=== PATIENT | male | born 1955 | race Two or more races ===

== ENCOUNTER 2023-04-08 19:30 | Inpatient (IN) | payer MEDICARE, MEDICAID ==
[~2023-04-08] VITALS: Ht 172.7 cm; Wt 91.5 kg
[2023-04-08] MEDS ORDERED: LACTATED RINGER'S 1,000 ML IV ONE (19:45)
[2023-04-08 20:28] LABS: Basophils # (auto) 0 10 ^3/uL (0-0.2); Eosinophils # (auto) 0.3 10 ^3/uL (0-0.8); Eosinophils % (auto) 6.5 % (0.0-7.0); Hematocrit 48.4 % (41.0-53.0); Hemoglobin 16.1 g/dL (13.5-17.5); Lymphocytes # (auto) 1.4 10 ^3/uL (0.4-5.4); Lymphocytes % (auto) 29.2 % (10.0-50.0); Mean Corpuscular Hgb Conc. 33.2 g/dL (32.0-36.0); Mean Corpuscular Volume 93.5 fL (80.0-100.0); Monocytes # (auto) 0.2 10 ^3/uL (0-1.3); Monocytes % (auto) 4.2 % (0.0-12.0); Neutrophils # (auto) 2.9 10 ^3/uL (1.6-8.6); Neutrophils % (auto) 59.1 % (37.0-80.0); Nucleated Red Blood Cells % 0.1 %; Red Blood Cells 5.18 10^6/uL (4.5-5.90); Red Cell Distribution Width 13.9 % (11.8-14.3); White Blood Cell 4.9 10^3/uL (4.4-10.8)
[2023-04-08 20:44] LABS: Alanine Aminotransferase 30 U/L (7-40); Albumin 4.5 g/dL (3.2-4.8); Alkaline Phosphatase 90 U/L (46-116); Anion Gap 12 (5-15); Aspartate Aminotransferase 30 U/L (13-40); BUN/Creatinine Ratio 11.7 (10.0-20.0); Blood Alcohol < 3.0 mg/dL (<10); Blood Urea Nitrogen 15 mg/dL (9-23); Carbon Dioxide 23 mmol/L (20-30); Chloride 102 mmol/L (98-107); Glucose 136 mg/dL (74-106); Potassium 3.7 mmol/L (3.5-5.1); Sodium 137 mmol/L (136-145)
[2023-04-08 20:45] LABS: Bilirubin, Total 0.4 mg/dL (0.2-1.0); Total Protein 7.4 g/dL (5.7-8.2)
[2023-04-08 20:57] VITALS: PULSE 70; RESP 12; O2SAT 95
[2023-04-08 21:11] LABS: Lipase 28 U/L (12-53)
[2023-04-08 21:17] LABS: INR 1.09 (0.9-1.15); Partial Thromboplastin Time 25.9 SEC (24.5-34.5); Prothrombin Time 11.4 sec (9.3-11.8)
[2023-04-08 21:36] LABS: Lactic Acid w/Reflex 4.8 mmol/L (0.4-2.0)
[2023-04-08] MEDS ORDERED: LORazepam 2MG/ML-1ML VIAL ONE (23:09)
[2023-04-08 23:30] LABS: Urine Bacteria NONE SEEN /hpf (None Seen); Urine Blood Negative /uL (Negative); Urine Clarity Clear (Clear); Urine Color Colorless (Yellow); Urine Hyaline Cast FEW /lpf (0 - 2); Urine Protein, UAD Negative (Negative); Urine Specific Gravity 1.022 (1.001-1.035); Urine Urobilinogen Normal (Negative); Urine WBC 1 /hpf (0 - 3); Urine pH 6.5 (5.0-8.0)
[2023-04-08] MEDS ORDERED: LORazepam 2MG/ML-1ML VIAL IV ONE (23:30)
[2023-04-08 23:35] LABS: Amphetamine Screen, Urine Neg (NEGATIVE); Barbiturate Scree,Urine Neg (NEGATIVE); Benzodiazephine Screen, Urine Pos (NEGATIVE); Cocaine Screen, Urine Neg (NEGATIVE)
[2023-04-08 23:36] LABS: Cannabinoid Screen, Urine Neg (NEGATIVE); Opiate Scree,Urine Neg (NEGATIVE); Phencyclidine Screen, Urine Neg (NEGATIVE)
[2023-04-08] MEDS ORDERED: ONDANSETRON HCL 4 MG/2 ML VIAL ONE (23:57)
[2023-04-08] MEDS ORDERED: MORPHINE SULFATE INJ 2 MG/ml SYRG ONE (23:57)
[2023-04-09] MEDS ORDERED: LORazepam 0.5 MG TAB PO PRN
[2023-04-09] MEDS ORDERED: MORPHINE SULFATE INJ 2 MG/ml SYRG IV PRN
[2023-04-09] MEDS ORDERED: MAALOX PLUS or MAALOX 30 ML PO PRN
[2023-04-09] MEDS ORDERED: DOCUSATE SOD 100 MG CAP PO PRN
[2023-04-09] MEDS: MORPHINE SULFATE INJ 2 MG/ml SYRG IV SCH ×2 (00:39→06:00)
[2023-04-09] MEDS: ONDANSETRON HCL 4 MG/2 ML VIAL IV SCH ×4 (00:40→12:07)
[2023-04-09] MEDS: SODIUM CHLORIDE 0.9% 1,000 ML IV SCH ×2 (00:44→16:40)
[2023-04-09] MEDS: metroNIDAZOLE 500MG/100ML 100 ML IV SCH ×3 (00:45→17:41)
[2023-04-09] MEDS: LACTULOSE 20Gm/30ML SOLN PO SCH ×2 (02:42→12:11)
[2023-04-09 05:29] LABS: Basophils # (auto) 0 10 ^3/uL (0-0.2); Basophils % (auto) 0.1 % (0.0-2.0); Eosinophils # (auto) 0 10 ^3/uL (0-0.8); Eosinophils % (auto) 0.4 % (0.0-7.0); Hematocrit 44.7 % (41.0-53.0); Hemoglobin 15.2 g/dL (13.5-17.5); Lymphocytes # (auto) 1.1 10 ^3/uL (0.4-5.4); Lymphocytes % (auto) 15.4 % (10.0-50.0); Mean Corpuscular Hemoglobin 31.1 pg (28.0-32.0); Mean Corpuscular Hgb Conc. 33.9 g/dL (32.0-36.0); Mean Corpuscular Volume 91.6 fL (80.0-100.0); Monocytes # (auto) 0.4 10 ^3/uL (0-1.3); Monocytes % (auto) 5.8 % (0.0-12.0); Neutrophils # (auto) 5.4 10 ^3/uL (1.6-8.6); Neutrophils % (auto) 78.3 % (37.0-80.0); Nucleated Red Blood Cells % 0.1 %; Red Blood Cells 4.88 10^6/uL (4.5-5.90); Red Cell Distribution Width 13.9 % (11.8-14.3); White Blood Cell 6.9 10^3/uL (4.4-10.8)
[2023-04-09 05:57] LABS: Chloride 103 mmol/L (98-107); Potassium 3.3 mmol/L (3.5-5.1); Sodium 140 mmol/L (136-145)
[2023-04-09 05:58] LABS: Anion Gap 9 (5-15); Carbon Dioxide 28 mmol/L (20-30)
[2023-04-09 06:01] VITALS: BP 126/64; PULSE 58; RESP 18; O2SAT 96
[2023-04-09 06:03] LABS: BUN/Creatinine Ratio 9.7 (10.0-20.0); Blood Urea Nitrogen 10 mg/dL (9-23); Glucose 107 mg/dL (74-106)
[2023-04-09 08:00] VITALS: PULSE 47; PULSE 66; RESP 17; O2SAT 93
[2023-04-09] MEDS ORDERED: ESCI5TAB20 PO (08:08)
[2023-04-09] MEDS ORDERED: QUET400T13 PO (08:08)
[2023-04-09] MEDS: ONDANSETRON HCL 4 MG/2 ML VIAL IV PRN (08:11)
[2023-04-09] MEDS ORDERED: SOD CHL 0.9%/ KCL 40MEQ 1,000 ML IV ONE (08:15)
[2023-04-09 09:05] VITALS: BP 122/67; PULSE 66; RESP 17; TEMP 98; O2SAT 93
[2023-04-09] MEDS ORDERED: CLON0.3D4 PO (09:46)
[2023-04-09] MEDS ORDERED: ALPR2TAB6 PO (09:46)
[2023-04-09] MEDS ORDERED: METH10T PO (09:46)
[2023-04-09] MEDS ORDERED: ALPR1TAB7 PO (09:46)
[2023-04-09] MEDS ORDERED: LACTULOSE 20Gm/30ML SOLN PO SCH (10:00)
[2023-04-09] MEDS: QUEtiapine FUMARATE 100 MG TAB PO SCH ×2 (10:47→22:00)
[2023-04-09] MEDS: CITALOPRAM HYDROBR 20 MG TAB PO SCH (10:47)
[2023-04-09] MEDS: cloNIDine HCL 0.1 MG TAB PO SCH ×2 (12:12→22:00)
[2023-04-09 12:31] VITALS: BP 139/64; PULSE 63; RESP 16; TEMP 98; O2SAT 93
[2023-04-09] MEDS ORDERED: METOCLOPRAMIDE HCL 10 MG TAB PO SCH (14:00)
[2023-04-09] MEDS: METOCLOPRAMIDE HCL 5MG/ml INJ 2ml VIAL IV PRN (15:26)
[2023-04-09] MEDS: HYDROmorphone HCL 2 MG/ML VL/or syr IV PRN (15:27)
[2023-04-09] MEDS: METHADONE HCL 10 MG TAB PO SCH (15:45)
[2023-04-09 16:38] VITALS: BP 130/67; PULSE 66; RESP 17; TEMP 98; O2SAT 92
[2023-04-09 20:00] VITALS: BP 130/68; PULSE 66; RESP 17; TEMP 98; O2SAT 93
[2023-04-10] VITALS (7 sets, daily range): BP systolic 61–146; BP diastolic 60–76; PULSE 51–58; RESP 16–17; TEMP 98–98.6; O2SAT 88–92
[2023-04-10] MEDS: metroNIDAZOLE 500MG/100ML 100 ML IV SCH ×2 (00:49→08:54)
[2023-04-10] MEDS: HYDROmorphone HCL 2 MG/ML VL/or syr IV PRN (00:50)
[2023-04-10 07:25] LABS: Basophils # (auto) 0 10 ^3/uL (0-0.2); Basophils % (auto) 0.2 % (0.0-2.0); Eosinophils # (auto) 0 10 ^3/uL (0-0.8); Eosinophils % (auto) 0.4 % (0.0-7.0); Hematocrit 44.9 % (41.0-53.0); Hemoglobin 14.8 g/dL (13.5-17.5); Lymphocytes # (auto) 1.3 10 ^3/uL (0.4-5.4); Lymphocytes % (auto) 14.1 % (10.0-50.0); Mean Corpuscular Hemoglobin 30.8 pg (28.0-32.0); Mean Corpuscular Volume 93.2 fL (80.0-100.0); Monocytes # (auto) 0.5 10 ^3/uL (0-1.3); Monocytes % (auto) 5.3 % (0.0-12.0); Neutrophils # (auto) 7.4 10 ^3/uL (1.6-8.6); Red Blood Cells 4.82 10^6/uL (4.5-5.90); Red Cell Distribution Width 14.1 % (11.8-14.3); White Blood Cell 9.2 10^3/uL (4.4-10.8)
[2023-04-10 07:43] LABS: Chloride 107 mmol/L (98-107); Potassium 3.7 mmol/L (3.5-5.1); Sodium 140 mmol/L (136-145)
[2023-04-10 07:44] LABS: Anion Gap 8 (5-15); Carbon Dioxide 25 mmol/L (20-30)
[2023-04-10 07:45] LABS: Calcium 8.6 mg/dL (8.5-10.1)
[2023-04-10 07:49] LABS: Glucose 71 mg/dL (74-106)
[2023-04-10 07:50] LABS: BUN/Creatinine Ratio 8.6 (10.0-20.0); Blood Urea Nitrogen 8 mg/dL (9-23)
[2023-04-10] MEDS: SODIUM CHLORIDE 0.9% 1,000 ML IV SCH (08:57)
[2023-04-10] MEDS: METHADONE HCL 10 MG TAB PO SCH ×2 (10:00→11:35)
[2023-04-10] MEDS: CITALOPRAM HYDROBR 20 MG TAB PO SCH ×2 (10:00→11:36)
[2023-04-10] MEDS: QUEtiapine FUMARATE 100 MG TAB PO SCH ×3 (10:00→21:57)
[2023-04-10] MEDS: LACTULOSE 20Gm/30ML SOLN PO SCH ×2 (10:00→18:00)
[2023-04-10] MEDS: cloNIDine HCL 0.1 MG TAB PO SCH ×3 (10:00→21:56)
[2023-04-10] MEDS ORDERED: SODIUM CHLORIDE 0.9% 1,000 ML IV SCH (11:00)
[2023-04-10] MEDS ORDERED: FLEET MINERAL OIL ENEMA 133 ML PR ONE (11:00)
[2023-04-10] MEDS ORDERED: BISACODYL 10 MG RECT SUPP PR PRN (13:45)
[2023-04-10] MEDS ORDERED: BISACODYL 10 MG RECT SUPP PR ONE (13:45)
[2023-04-10] MEDS: LORazepam 2MG/ML-1ML VIAL IV PRN (22:07)
[2023-04-11] VITALS (7 sets, daily range): BP systolic 129–154; BP diastolic 75–87; PULSE 52–103; RESP 16–19; TEMP 98–99.1; O2SAT 91–94
[2023-04-11] MEDS: ONDANSETRON HCL 4 MG/2 ML VIAL IV PRN (00:46)
[2023-04-11] MEDS: cloNIDine HCL 0.1 MG TAB PO SCH ×2 (10:00→21:28)
[2023-04-11] MEDS: CITALOPRAM HYDROBR 20 MG TAB PO SCH (10:00)
[2023-04-11] MEDS: QUEtiapine FUMARATE 100 MG TAB PO SCH ×2 (10:00→21:26)
[2023-04-11] MEDS: METHADONE HCL 10 MG TAB PO SCH (10:00)
[2023-04-11] MEDS: METOCLOPRAMIDE HCL 5MG/ml INJ 2ml VIAL IV PRN (10:41)
[2023-04-11] MEDS: LORazepam 2MG/ML-1ML VIAL IV PRN (10:41)
[2023-04-11] MEDS ORDERED: FLEET ENEMA(ADULT) 135 ML PR ONE (14:00)
[2023-04-11] MEDS: POLYETHYLENE GLYCOL 17 GM PWDR PO SCH (17:31)
[2023-04-11] MEDS: SODIUM CHLORIDE 0.9% 1,000 ML IV SCH (17:32)
[2023-04-11] MEDS: HYDROmorphone HCL 2 MG/ML VL/or syr IV PRN (18:36)
[2023-04-11] MEDS: LACTULOSE 20Gm/30ML SOLN PO SCH ×2 (21:27)
[2023-04-12] MEDS: SODIUM CHLORIDE 0.9% 1,000 ML IV SCH ×2 (02:25→09:50)
[2023-04-12 04:38] VITALS: BP 123/71; PULSE 92; RESP 16; TEMP 98.9; O2SAT 94
[2023-04-12 08:00] VITALS: PULSE 16
[2023-04-12 09:00] VITALS: BP 126/60; PULSE 73; RESP 18; TEMP 97.6; O2SAT 90
[2023-04-12] MEDS: CITALOPRAM HYDROBR 20 MG TAB PO SCH (09:55)
[2023-04-12] MEDS: METHADONE HCL 10 MG TAB PO SCH (09:55)
[2023-04-12] MEDS: QUEtiapine FUMARATE 100 MG TAB PO SCH (09:55)
[2023-04-12] MEDS: LACTULOSE 20Gm/30ML SOLN PO SCH (10:04)
[2023-04-12] MEDS: POLYETHYLENE GLYCOL 17 GM PWDR PO SCH (10:05)
[2023-04-12] MEDS: METOCLOPRAMIDE HCL 5MG/ml INJ 2ml VIAL IV PRN (10:14)
[2023-04-12 13:00] VITALS: BP 121/54; PULSE 74; RESP 18; TEMP 97.8; O2SAT 94
[2023-04-12] MEDS: cloNIDine HCL 0.1 MG TAB PO SCH (13:37)
[2023-04-12] MEDS: ONDANSETRON HCL 4 MG/2 ML VIAL IV PRN (15:06)
== END 2023-04-12 16:03 | disposition home or self-care (01) | DRG 254 ==
LOC: EDBD 19:30 → ER 19:30 → EEVIPCON 19:30 → TELE 23:56 → TELE-WESTW 04-09 05:50
PROVIDERS: ADMIT Hospitalist; ATTEND Nurse Practitioner Acute Care
DX: K59.00 Constipation, unspecified (principal); G93.41 Metabolic encephalopathy; E72.20 Disorder of urea cycle metabolism, unspecified; E87.20 Acidosis, unspecified; G40.909 Epilepsy, unspecified, not intractable, without status epilepticus; E66.9 Obesity, unspecified; F20.9 Schizophrenia, unspecified; I10 Essential (primary) hypertension; F17.200 Nicotine dependence, unspecified, uncomplicated; Z88.8 Allergy status to other drugs, medicaments and biological substances; Z79.899 Other long term (current) drug therapy; Z91.199 Patient's noncompliance with other medical treatment and regimen due to unspecified reason; Z68.30 Body mass index [BMI] 30.0-30.9, adult
CPT/HCPCS: 36415; 70450; 71045; 74018; 74177; 80048; 80053; 80307; 80320; 81001; 82140; 83605; 83690; 83735; 84484; 85025; 85610; 85730; 87040; 87077; 87186; 93005; 96374; 96375; G0378; J2405; J3490

== ENCOUNTER 2024-03-30 19:30 | Emergency (ER) | payer MEDICARE, MEDICAID ==
[~2024-03-30] VITALS: Ht 175.3 cm; Wt 102.3 kg
[~2024-03-30 19:30] MED LIST: ALPR1TAB7 PO; ALPR2TAB6 PO; CLON0.3D4 PO; ESCI5TAB20 PO; METH-1214 PO; QUET400T13 PO
--- NOTE | 2024-03-30 21:14 | ED.PDOC ---
History of Present Illness HPI Comments 68-year-old male presents to the ED chief complaint medication refill. States he ran out of Seroquel 2 days ago states unable to have his PCP fill it and he is requesting a temporary refill for least 3-5 days till he can follow up with the appointment next week. Patient states takes 400 mg in the morning, 200 mg after noon, and 400 mg at night. Chief Complaint: Mental Health Time Seen by MD: 19:39 Reviewed Notes: Nurses Notes, Medications, Allergies Allergies: Coded Allergies: Haloperidol (Verified Allergy, Unknown, 04/08/23) Home Meds Reported Medications Alprazolam (Alprazolam) 1 Mg Tab, 1 MG PO BID, #60 TAB 04/09/23 Alprazolam (Alprazolam) 2 Mg Tab, 2 MG PO HS, #90 TAB 04/09/23 Clonidine Hydrochloride (Clonidine Hcl) 0.3 Mg/24 Hr Dis, 0.3 MG PO BID for 30 Days, MG 04/09/23 Methadone Hcl (METHADONE HCL TABLET) 10 Mg Tb, 195 MG PO DAILY, #120 TAB 04/09/23 Escitalopram Oxalate (ESCITALOPRAM OXALATE) 5 Mg Tab, 1 TAB PO DAILY 04/09/23 Quetiapine Fumerate (QUETIAPINE FUMARATE) 400 Mg Tab, 400 MG PO BID 04/09/23 Information Source: Patient Mode of Arrival: Ambulatory Past Medical History PAST MEDICAL HISTORY: HTN, Schizophrenia, Seizures Surgical History: Unknown, Unobtainable Family History Family History: Unknown, Unobtainable Social History Smoker: Unobtainable Alcohol: Unobtainable Drugs: Unobtainable Constitutional: denies: chills, diaphoresis, fatigue, fever, malaise, sweats, weakness, others EENTM: denies: blurred vision, double vision, ear bleeding, ear discharge, ear drainage, ear pain, ear ringing, eye pain, eye redness, hearing loss, mouth pain, mouth swelling, nasal discharge, nose bleeding, nose congestion, nose pain, photophobia, tearing, throat pain, throat swelling, voice changes, others Respiratory: denies: cough, hemoptysis, orthopnea, SOB at rest, shortness of breath, SOB with excertion, stridor, wheezing, others Cardiovascular: denies: chest pain, dizzy spells, diaphoresis, Dyspnea on exertion, edema, irregular heart beat, left arm pain, lightheadedness, palpitations, PND, syncope, others Gastrointestinal: denies: abdomen distended, abdominal pain, blood streaked bowels, constipated, diarrhea, dysphagia, difficulty swallowing, hematemesis, melena, nausea, poor appetite, poor fluid intake, rectal bleeding, rectal pain, vomiting, others Genitourinary: denies: burning, dysuria, flank pain, frequency, hematuria, incontinence, penile discharge, penile sore, pain, testicle pain, testicle swelling, urgency, others Neurological: denies: dizziness, fainting, headache, left sided numbness, left sided weakness, numbness, paresthesia, pre-existing deficit, right sided numbness, right sided weakness, seizure, speech problems, tingling, tremors, weakness, others Musculoskeletal: denies: back pain, gout, joint pain, joint swelling, muscle pain, muscle stiffness, neck pain, others Integumetry: denies: bruises, change in color, change in hair/nails, dryness, laceration, lesions, lumps, rash, wounds, others Allergic/Immunocompromised: denies: Difficulty Healing, Frequent Infections, Hives, Itching, others Hematologic/Lymphatic: denies: anemia, blood clots, easy bleeding, easy bruising, swollen glands, others Endocrine: denies: excessive hunger, excessive sweating, excessive thirst, excessive urination, flushing, intolerance to cold, intolerance to heat, unexp lained weight gain, unexplained weight loss, others Psychiatric: denies: anxiety, bipolar disorder, depression, hopeless, panic disorder, schizophrenia, sleepless, suicidal, others Physical Exam General Appearance: No Apparent Distress, Normal HEENT: Pharynx Normal Neck: Full Range of Motion, Non-Tender Respiratory: Lungs Clear, No Respiratory Distress, Normal Breath Sounds Cardiovascular: No Edema, No JVD, No Murmur, No Gallop, Normal Peripheral Pulses, Regular Rate/Rhythm Breast Exam: Deferred Gastrointestinal: No Organomegaly, Non Tender, No Pulsatile Mass, Normal Bowel Sounds, Soft Genitalia: Deferred Pelvic: Deferred Rectal: Deferred Extremities: Normal capillary refill, Normal inspection, Normal range of motion, Non-tender, No pedal edema Musculoskeletal : Apperance: Normal Neurologic: Alert, spinner hydraulic II-XII nml as Tested, No Motor Deficits, Normal Affect, Normal Mood, No Sensory Deficits Cerebellar Function: Normal Reflexes: Normal Skin: Dry, Normal Color, Warm Lymphatic: No Adenopathy Was a procedure done? Was a procedure done?: No Differential Dx Considerations may include: med refill X-Ray, Labs, Meds, VS Vital Signs Date Time Temp Pulse Resp B/P (MAP) Pulse Ox O2 Delivery O2 Flow Rate FiO2 03/30/24 23:17 97.7 68 18 107/72 (84) 95 97.7 03/30/24 23:17 68 19 95 Room Air 03/30/24 19:50 97.8 94 18 145/92 (109) 95 Current Medications Medications (Trade) Dose Ordered Sig/Natalie Route Start Time Stop Time Status Last Admin Quetiapine Fumarate (SEROquel TABLET) 400 mg ONCE ONCE PO 03/30/24 19:45 03/30/24 19:46 DC 03/30/24 22:58 X-Ray, Labs, Meds, VS Comment Insert cold dose 400 mg tonight p.o. script prescription for 3 days. Follow up with his PCP appointment for further refills. Return precautions given patient agrees with discharge plan of care. Time of 1ST Reevaluation: 21:08 Reevaluation 1ST: Improved Patient Education/Counseling: Diagnosis, Treatment, Prognosis, Need For Follow Up Family Education/Counseling: Diagnosis, Treatment, Prognosis, Need For Follow Up Departure 1 Departure Time of Disposition: 21:14 Impression: Primary Impression: Medication refill Disposition: HOME / SELF CARE / HOMELESS Condition: Stable e-Prescriptions Quetiapine Fumerate (QUETIAPINE FUMARATE) 400 Mg Tab 400 MG PO BID, #10 TAB Prov: EFRA WEBER 03/31/24 Discharged With: Relative Critical Care Note Critical Care Time?: No Stability Stability form required: EFRA Mlaone Mar 30, 2024 21:14
[2024-03-30] MEDS: QUEtiapine FUMARATE 100 MG TAB PO ONE (22:58)
[2024-03-30 23:17] VITALS: BP 107/72; PULSE 68; RESP 19; TEMP 97.7; O2SAT 95
[2024-03-30] MEDS ORDERED: QUEtiapine FUMARATE 100 MG TAB PO ONE (23:45)
[2024-03-31] MEDS ORDERED: QUET400T13 PO (00:19)
== END 2024-03-30 23:48 | disposition home or self-care (01) ==
LOC: ER 19:30
DX: F20.9 Schizophrenia, unspecified (principal); I10 Essential (primary) hypertension; Z76.0 Encounter for issue of repeat prescription; Z79.899 Other long term (current) drug therapy; Z88.8 Allergy status to other drugs, medicaments and biological substances